=== PATIENT | female | born 1950 | race Caucasian/White ===

== ENCOUNTER 2017-04-02 08:59 | Emergency (ER) | payer BC, MEDICARE ==
--- NOTE | ~2017-04-02 | ER ---
PATIENT'S NAME: [facility] AGE: 66 Y [address] ROOM: [place] [id number] LOCATION: [facility] ADMIT DATE: 04/02/2017 ER/Outpatient Report DISCHARGE DATE: 04/02/2017 FAMILY PHYSICIAN: Mode Fournier MD ATTENDING PHYSICIAN: Deon Watts Admission date and time documented on the medical record. I saw the patient at 0910 hours. CHIEF COMPLAINT: Bleeding from a dog bite, right forearm. HISTORY OF PRESENT ILLNESS: The patient is a 66-year-old female who bit down by her dog, while her dog was eating. The dog bit her multiple times in the right forearm. She was seen yesterday afternoon in the emergency department here at [facility]. Her wounds were dressed at that time. She came back around midnight with dressing soaked with blood. There was one puncture wound that was continued to ooze and was source of all blood on her soak bandages. This wound was glued. Surgicel was applied and pressure dressing was applied. She presented here again this morning around 9 o'clock with a blood-soaked dressing on the right forearm. No other changes in her physical condition. She is not feverish. She is having no chills. No other complaints. She is having a lot of pain in that right forearm from the injury. HOME MEDICATIONS: See attached usp form. ALLERGIES: SEE ATTACHED [facility] FORM. SOCIAL HISTORY: Nonsmoker, nondrinker. SIGNIFICANT PAST MEDICAL HISTORY: Operations unchanged from previous dictation x2 in the past 24 hours. REVIEW OF SYSTEMS: All systems reviewed by me with the patient are negative with exception of those discussed in the history of present illness. PHYSICAL EXAMINATION: VITAL SIGNS: Temperature 99 tympanic, pulse 79, respirations 16, blood pressure 137/89, O2 saturation on room air is 92%. EXTREMITIES: On examination, the patient has multiple puncture wounds on the PATIENT'S NAME: [facility] AGE: 66 Y [address] ROOM: [place] [id number] LOCATION: [facility] ADMIT DATE: 04/02/2017 ER/Outpatient Report DISCHARGE DATE: 04/02/2017 FAMILY PHYSICIAN: Mode Fournier MD ATTENDING PHYSICIAN: Mac,Deon D right forearm and hand. There was one mid lateral ulnar aspect of her right forearm. That continues to bleed. All of the other wounds are fairly sealed, a minimal amount of bleeding occurred when we took the bandages off. Neurovascularly still appears to be intact with the right forearm and hand. There is no redness, no excessive swelling, no red streaking. No drainage other than the bleeding. I did go ahead and cauterize the bleeding site with silver nitrate stick. I was able to stop the bleeding using a silver nitrate stick. Applied Surgicel gauze over the wound and again over several of the other puncture sites. Applied nonstick dressings with gauze wrap, Kerlix wrap, and Carmelo wrap. We did watch the patient here in the emergency department for about 2 hours. There is no further bleeding at this time on dismissal. IMPRESSION: Persistent bleeding from a dog bite puncture wound, right forearm. The area was cauterized with silver nitrate stick. Followed with dressing of Surgicel nonstick dressing, gauze wrap, Kerlix wrap, and Carmelo wrap. PLAN: The patient discharged home. Continue present home medications and care. Keep present dressing on until seen by personal physician in 2 to 3 days. Follow up exam. Try to avoid any further trauma or rubbing that might move the dressings and tear off the scab. I did discuss my findings recommendations with the patient. She understands. Return to the emergency room if needed sooner or see her personal physician in 2 to 3 days. MD MAYA GUZMÁN/modl /[id number] d: 04/02/17 1507 t: 04/03/17 0610, OUTPATIENT REPORT
[~2017-04-02 08:59] MED LIST: ALIGN4 MG PO; AMLODIPINE BES2.5 MG PO; ASPIRIN LO-DOSE81 MG PO; CARDIZEM60 MG PO; CIPRO500 MG PO; CLEOCIN150 MG PO; COUMADIN ** IA3 MG PO; HYDROCHLOROTH12.5 MG PO; LASIX20 MG PO; LISINOPRIL10 MG PO; LYRICA300 MG PO; NORVASC5 MG PO; PERCOCET 5-3251 EACH PO; PLAVIX75 MG PO; REQUIP0.5 MG PO; SOTALOL120 MG PO; TRAMADOL HCL50 MG PO; XANAX0.25 MG PO
== END 2017-04-02 11:14 | disposition disaster alternative care site (69) ==
LOC: GMED 08:59
DX: S51.831A Puncture wound without foreign body of right forearm, initial encounter (principal); W54.0XXA Bitten by dog, initial encounter
CPT/HCPCS: J2550